=== PATIENT | female | born 2000 | race Caucasian/White ===

== ENCOUNTER → 2024-12-10 | Outpatient (CLI) | payer BC, SELFPAY ==
--- OUTSIDE RECORDS SUMMARY | 2024-12-10 22:53 | XMS RPT_ITS | CCD ---
Author Organization [facility] Inform ion Partnership [facility] Care Team Providers Care Stereo Operator Name Role Phone Care Physician, No Primary Attending Unava ilable Care Physician, No Primary Primary Care Unava ilable Care Physician, No Primary Primary Care Provider Unavailable Care Physician, No Primary Referring Provider Un available Angelica Villasenor Attending Provider [phone] Medications Current Medications Medication Drug Class(es) Dates Sig (Normalized) Sig (Original) Black Seed 4.5 gram/5 mL oil (1 source) Start: 11-06-2024 Black Seed 4.5 gram/5 mL oil Active g PO November 06, 2024 12:00am Creatine (1 source) Start: 11-06-2024 Creatine Monohydrate powder Active NMA PO November 06, 2024 12:00am [facility] 0-Ncg-Vrj-Fish Oil (Fish Oil) 60-90-500 mg capsule (1 source) Start: 11-06-2024 [facility] 8-Jdl-Ikz-Fish Oil (Fish Oil) 60-90-500 mg capsule Active 1 NMA PO daily November 06, 2024 12:00am Vital Signs Date Time Vital Sign Value Performing Clinician Nikunj patel 12-10-2024 07:25-0400 Body height 172.72 cm No Primary Care Physician [facility] 12-10-2024 07:25-0400 Body mass index (BMI) [Ratio] 34.7 kg/m2 No Primary Care Physician [facility] 12-10-2024 07:25-0400 Body weight 103.41 kg No Primary Care Physician [facility] 12-10-2024 07:25-0400 Diastolic blood pressure 86 mm[Hg] No Primary Care Physician [facility] 12-10-2024 07:25-0400 Systolic blood pressure 140 mm[Hg] No Primary Care Physician [facility] Encounters Encounter Date Encounter Type Care Provider Facility Start: 12-10-2024 End: 12-10-2024 ambulatory No Primary Care Physician -[facility] Start: 12-10-2024 End: 12-10-2024 Patient encounter procedure Angelica SOLANO -[facility] Start: 12-10-2024 End: 12-10-2024 Patient encounter status Angelica SOLANO [facility] Start: 03-31-2022 ambulatory No Primary Car e Phys[place] [place] of Treatment Date Care Activity Detail Author Liquid based cervical cytology screening [facility] Payers Date Payer Category Payer Self-pay Unknown [id number] Unknown [id number] Social History Date Type Detail Facility Start: 12-10-2024 Tobacco smoking stat [facility] Never smoked tobacco (finding) [facility] Start: 2000 Sex Assigned At Female W [facility] Gender Identity Identifies as fe male gender (finding) [facility] Sexual Orientation Heterosexual (finding) [facility] Evaluation note Note Date & Type Note Facility Evaluation note Diagnosis Onset Date Resolution Encounter for routine gynecological examination noneactive December 10, 2024 7:03am [facility] Work Phone: Reason for referral (narrative) Note Date & Type Note Facility Reason for referral (narrative) No reason for referral information available [facility] Work Phone: Summary Purpose Family History Relationship Condition Age at Onset Recorded Date/T bharathi grandfather Myocardial infarction 30 Arthritis Unknown grandmother Arthritis Unknown Diabetes mellitus Unknown Advance Directives No Advanced Directives Records Found Chief Complaint and Reason for Visit Chief Complaint 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, 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 7:0 3am Reason for Visit Admit Date Encounter for routine gynecological exam ination December 10, 2024 7:03am Additional Source Comments INFORMATION SOURCE (unrecogn ized section and content) DATE CREATED AUTHOR 11/24/2024 [facility] Care Teams (unrecognized sec tion and content) Team Status: Active Member Role/Relationship Status Dates No Primary Care Physician Primary Care Provider Active Team Status: Inactive Member Role/Relationship Status Dates No Primary Care Physician Primary Care Provider Active Start: December 10, 2024 End: December 10, 2024 No Primary Care Physician Referring Provider Active Start: December 10, 2024 End: December 10, 2024 RUSS Espinoza Attending Provider Active Start: December 10, 2024 End: December 10, 2024 Goals (unrecognized section and content) Goals may be documented in a n alternate section FOR RECORDS PERTAINING TO PATIENTS WHO ARE OR HAVE BEEN ENROLLED IN A CHEMICAL DEPENDENCY/SUBSTANCEABUSE PROGRAM, SOME INFORMATION MAY BE OMITTED. This clinical summary was aggregated from multiple sources. Caution should be exercised in using it in the provision of clinical care. This summary normalizes information from multiple sources, and as a consequence, information in this document may materially change the coding, format and clinical context of patient data. In addition, data may be omitted in some cases. CLINICAL DECISIONS SHOULD BE BASED ON THE PRIMARY CLINICAL RECORDS. [facility] [employer] provides no warranty or guarantee of the accuracy or completeness of information in this document.
== END | disposition home or self-care (01) ==
LOC: LAB 16:16 → LABSPEC 16:34
PROVIDERS: Referring Provider Nurse Practitioner Family; Visit Provider Nurse Practitioner Family
DX: Z00.00 Encounter for general adult medical examination without abnormal findings (principal)
CPT/HCPCS: 88175; G0145